=== PATIENT | male | born 1965 | race African-American/Black ===

== ENCOUNTER 2021-12-28 22:00 | Inpatient (IN) | payer OTHER ==
[2021-12-28 23:58] VITALS: BMI 36.6
[2021-12-29] MEDS ORDERED: Loperamide HCl 2 MG CAP PO PRN (05:02)
[2021-12-29] MEDS ORDERED: Acetaminophen 325 MG TAB PO PRN (05:02)
[2021-12-29] MEDS ORDERED: Zolpidem Tartrate 5 MG TAB PO PRN (05:02)
[2021-12-29] MEDS ORDERED: Ondansetron PF 4 MG/2 ML Vial IVP PRN (05:02)
[2021-12-29] MEDS ORDERED: HYDROcodone/Acetaminophen 5/325 mg Tablet PO PRN (05:02)
[2021-12-29] MEDS ORDERED: Bisacodyl 10 MG SUPP PR PRN (05:02)
[2021-12-29] MEDS ORDERED: Senokot S 8.6-50 MG TAB PO PRN (05:02)
[2021-12-29] MEDS ORDERED: Calcium Carbonate 500 MG ChewTAB PO PRN (05:02)
[2021-12-29] MEDS: Furosemide 40 MG/4 ML VIAL SLOW IVP SCH ×2 (05:29→13:29)
[2021-12-29] MEDS: Heparin 5,000 UNITS/ML VIAL SC SCH ×3 (08:28→20:06)
[2021-12-29] MEDS: Carvedilol 6.25 MG TAB PO SCH ×2 (08:29→17:59)
[2021-12-29] MEDS: hydrALAZINE 25 MG TAB PO SCH ×4 (08:29→20:06)
[2021-12-29 08:57] LABS: Anion Gap 14 mmol/L (10-20); BUN (Urea Nitrogen) 21 mg/dL (8.4-25.7); Calc. Creatinine Clearance 53 mL/min (70-130); Calcium 9.4 mg/dL (7.8-10.44); Carbon Dioxide 27 mmol/L (22-29); Chloride 106 mmol/L (98-107); Estimated GFR 34; Glucose 99 mg/dL (70-105); Potassium 3.4 mmol/L (3.5-5.1); Sodium 144 mmol/L (136-145)
[2021-12-29] MEDS ORDERED: Lisinopril 20 MG TAB PO SCH (09:00)
[2021-12-30 04:20] LABS: #Eosinphils 0.3 thou/uL (0.0-0.7); #Lymphocytes 1.9 thou/uL (1.20-3.40); #Monocytes 0.4 thou/uL (0.11-0.59); #Neutrophils 2.1 thou/uL (1.40-6.50); %Basophils 0.1 % (0.0-1.0); %Eosinophils 7.1 % (0.0-10.0); %Lymphocytes 39.3 % (21.0-51.0); %Neutrophils 44.5 % (42.0-75.0); Hemoglobin 14.7 g/dL (14.0-18.0); Mean Corpuscular HGB CONC 33.4 g/dL (32.0-36.0); Mean Corpuscular Hemoglobin 29.9 pg (27.0-31.0); Mean Corpuscular Volume 89.6 fL (78.0-98.0); Mean Platelet Volume 7.6 fL (7.4-10.4); Platelet Count 224 thou/uL (130-400); RBC Distribution Width 12.4 % (11.5-14.5); White Blood Cell (WBC) Count 4.7 thou/uL (4.8-10.8)
[2021-12-30 04:43] LABS: Anion Gap 14 mmol/L (10-20); BUN (Urea Nitrogen) 29 mg/dL (8.4-25.7); Calc. Creatinine Clearance 54 mL/min (70-130); Calcium 8.9 mg/dL (7.8-10.44); Carbon Dioxide 23 mmol/L (22-29); Chloride 105 mmol/L (98-107); Estimated GFR 36; Glucose 102 mg/dL (70-105); Potassium 3.3 mmol/L (3.5-5.1); Sodium 139 mmol/L (136-145)
[2021-12-30] MEDS: Furosemide 40 MG/4 ML VIAL SLOW IVP SCH (05:07)
[2021-12-30] MEDS ORDERED: Potassium Chloride 20 MEQ TAB PO SCH (08:30)
[2021-12-30] MEDS: Heparin 5,000 UNITS/ML VIAL SC SCH (09:40)
[2021-12-30] MEDS: hydrALAZINE 25 MG TAB PO SCH (09:41)
[2021-12-30] MEDS: Carvedilol 6.25 MG TAB PO SCH (09:41)
[2021-12-30 13:05] VITALS: TEMP 97.8
[2021-12-30 17:03] VITALS: BP 152/102
== END 2021-12-30 14:20 | disposition home or self-care (01) | DRG 291 ==
LOC: 2NO 23:44
PROVIDERS: ADMIT Internal Medicine; ATTEND Internal Medicine
DX: I13.0 Hypertensive heart and chronic kidney disease with heart failure and stage 1 through stage 4 chronic kidney disease, or unspecified chronic kidney disease (principal); I50.43 Acute on chronic combined systolic (congestive) and diastolic (congestive) heart failure; I16.1 Hypertensive emergency; Z20.822 Contact with and (suspected) exposure to COVID-19; N18.30 Chronic kidney disease, stage 3 unspecified; E66.9 Obesity, unspecified; I42.0 Dilated cardiomyopathy; E87.6 Hypokalemia; Z53.29 Procedure and treatment not carried out because of patient's decision for other reasons; Z79.899 Other long term (current) drug therapy; Z91.14 Patient's other noncompliance with medication regimen; I69.920 Aphasia following unspecified cerebrovascular disease; Z68.35 Body mass index [BMI] 35.0-35.9, adult
CPT/HCPCS: 36415; 80048; 85025; 93306; 93798; J1644; J1940

== ENCOUNTER 2025-02-01 19:40 | Inpatient (IN) | payer MEDICARE, OTHER ==
[2025-02-01] MEDS ORDERED: Calcium Carbonate 500 MG ChewTAB PO PRN (22:17)
[2025-02-01] MEDS ORDERED: Ondansetron PF 4 MG/2 ML Vial IVP PRN (22:17)
[2025-02-01] MEDS ORDERED: Acetaminophen 325 MG TAB PO PRN (22:17)
[2025-02-01 23:46] VITALS: BMI 38.7
[2025-02-02 04:05] LABS: #Basophils 0.05 10x3/uL (0.0-0.2); #Eosinophils 0.22 10x3/uL (0.0-0.7); #Monocytes 0.63 10x3/uL (0.11-0.59); #Neutrophils 3.47 10x3/uL (1.40-6.50); %Basophils 0.9 % (0.0-1.0); %Eosinophils 3.8 % (0.0-10.0); %Lymphocytes 24.7 % (21.0-51.0); %Monocytes 10.8 % (0.0-10.0); %Neutrophils 59.3 % (42.0-75.0); Hematocrit 38.2 % (42.0-52.0); Hemoglobin 12.5 g/dL (14.0-18.0); Mean Corpuscular Hemoglobin 28.6 pg (27.0-31.0); Mean Corpuscular Volume 87.4 fL (78.0-98.0); Platelet Count 230 10x3/uL (130-400); Red Blood Cell (RBC) Count 4.37 mill/uL (4.70-6.10); White Blood Cell (WBC) Count 5.84 10x3/uL (4.8-10.8)
[2025-02-02 04:39] LABS: ALT (SGPT) 25 U/L (Less than 45); AST (SGOT) 24 U/L (11-34); Albumin 3.4 g/dL (3.1-4.5); Alkaline Phosphatase 77 U/L (40-110); Anion Gap 16 mmol/L (10-20); BUN (Urea Nitrogen) 25 mg/dL (8.4-25.7); Bilirubin, Total 1.1 mg/dL (0.3-1.2); Calc. Creatinine Clearance 50 mL/min (70-130); Calcium 9.0 mg/dL (7.8-10.44); Carbon Dioxide 21 mmol/L (22-29); Chloride 109 mmol/L (98-107); Globulin 3.8 g/dL (2.4-3.5); Glucose 117 mg/dL (70-105); Magnesium 1.9 mg/dL (1.6-2.6); Potassium 3.6 mmol/L (3.5-5.1); Sodium 142 mmol/L (136-145)
[2025-02-02 04:56] LABS: Troponin I 0.190 ng/mL (< 0.028)
[2025-02-02] MEDS: Furosemide 40 MG (4 mL) VIAL SLOW IVP SCH (06:09)
[2025-02-02 09:00] LABS: Troponin I 0.148 ng/mL (< 0.028)
[2025-02-02] MEDS ORDERED: Heparin 5,000 UNITS/ML VIAL SC SCH (09:00)
[2025-02-02] MEDS: Aspirin 81 mg Enteric Coated Tablet PO SCH (09:25)
[2025-02-02] MEDS: Carvedilol 6.25 MG TAB PO SCH (09:27)
[2025-02-02] MEDS: Isosorbide Mononitrate 30 MG ER.TAB.S PO SCH (09:27)
[2025-02-02] MEDS: Heparin 5,000 UNITS/ML VIAL SC SCH (09:28)
[2025-02-03 03:59] LABS: #Basophils 0.04 10x3/uL (0.0-0.2); #Eosinophils 0.51 10x3/uL (0.0-0.7); #Monocytes 0.58 10x3/uL (0.11-0.59); #Neutrophils 2.93 10x3/uL (1.40-6.50); %Basophils 0.7 % (0.0-1.0); %Eosinophils 9.3 % (0.0-10.0); %Lymphocytes 25.5 % (21.0-51.0); %Monocytes 10.6 % (0.0-10.0); %Neutrophils 53.5 % (42.0-75.0); Hematocrit 35.0 % (42.0-52.0); Hemoglobin 11.3 g/dL (14.0-18.0); Mean Corpuscular Hemoglobin 29.0 pg (27.0-31.0); Mean Corpuscular Volume 90.0 fL (78.0-98.0); Platelet Count 239 10x3/uL (130-400); Red Blood Cell (RBC) Count 3.89 mill/uL (4.70-6.10); White Blood Cell (WBC) Count 5.48 10x3/uL (4.8-10.8)
[2025-02-03 04:11] LABS: Anion Gap 15 mmol/L (10-20); BUN (Urea Nitrogen) 32 mg/dL (8.4-25.7); Calc. Creatinine Clearance 48 mL/min (70-130); Calcium 8.9 mg/dL (7.8-10.44); Carbon Dioxide 21 mmol/L (22-29); Chloride 108 mmol/L (98-107); Glucose 106 mg/dL (70-105); Potassium 3.5 mmol/L (3.5-5.1); Sodium 140 mmol/L (136-145)
[2025-02-03] MEDS ORDERED: Isosorbide Mononitrate 30 MG ER.TAB.S PO SCH (09:00)
[2025-02-04 07:49] LABS: Anion Gap 15 mmol/L (10-20); BUN (Urea Nitrogen) 37 mg/dL (8.4-25.7); Calc. Creatinine Clearance 43 mL/min (70-130); Calcium 8.6 mg/dL (7.8-10.44); Carbon Dioxide 26 mmol/L (22-29); Chloride 101 mmol/L (98-107); Glucose 86 mg/dL (70-105); Potassium 3.2 mmol/L (3.5-5.1); Sodium 139 mmol/L (136-145)
[2025-02-04 13:55] LABS: Potassium 4.2 mmol/L (3.5-5.1)
[2025-02-05 03:50] LABS: #Basophils 0.03 10x3/uL (0.0-0.2); #Eosinophils 0.50 10x3/uL (0.0-0.7); #Monocytes 0.52 10x3/uL (0.11-0.59); #Neutrophils 2.39 10x3/uL (1.40-6.50); %Basophils 0.6 % (0.0-1.0); %Eosinophils 10.6 % (0.0-10.0); %Lymphocytes 26.5 % (21.0-51.0); %Monocytes 11.0 % (0.0-10.0); %Neutrophils 50.9 % (42.0-75.0); Hematocrit 36.9 % (42.0-52.0); Hemoglobin 11.6 g/dL (14.0-18.0); Mean Corpuscular Hemoglobin 28.2 pg (27.0-31.0); Mean Corpuscular Volume 89.6 fL (78.0-98.0); Platelet Count 242 10x3/uL (130-400); Red Blood Cell (RBC) Count 4.12 mill/uL (4.70-6.10); White Blood Cell (WBC) Count 4.71 10x3/uL (4.8-10.8)
[2025-02-05 04:29] LABS: Anion Gap 14 mmol/L (10-20); BUN (Urea Nitrogen) 38 mg/dL (8.4-25.7); Calc. Creatinine Clearance 53 mL/min (70-130); Calcium 8.6 mg/dL (7.8-10.44); Carbon Dioxide 20 mmol/L (22-29); Chloride 105 mmol/L (98-107); Glucose 98 mg/dL (70-105); Potassium 3.3 mmol/L (3.5-5.1); Sodium 136 mmol/L (136-145)
[2025-02-05 14:39] LABS: Potassium 3.9 mmol/L (3.5-5.1)
[2025-02-05 15:23] VITALS: BP 146/98; TEMP 97.9
== END 2025-02-05 15:42 | disposition home or self-care (01) | DRG 280 ==
LOC: INTOOBSV 22:09 → PCU 22:09 → OBSVTOIN 02-02 08:17
PROVIDERS: ADMIT Hospitalist; ATTEND Hospitalist
DX: I13.0 Hypertensive heart and chronic kidney disease with heart failure and stage 1 through stage 4 chronic kidney disease, or unspecified chronic kidney disease (principal); I50.23 Acute on chronic systolic (congestive) heart failure; I21.A1 Myocardial infarction type 2; J96.01 Acute respiratory failure with hypoxia; N18.4 Chronic kidney disease, stage 4 (severe); E11.22 Type 2 diabetes mellitus with diabetic chronic kidney disease; Z86.73 Personal history of transient ischemic attack (TIA), and cerebral infarction without residual deficits; I42.0 Dilated cardiomyopathy; Z79.899 Other long term (current) drug therapy; Z79.82 Long term (current) use of aspirin
CPT/HCPCS: 36415; 80048; 80053; 83735; 83880; 84443; 84484; 85025; 93005; 93010; 93306; 93798; 96374; G0378; J1250; J1644; J1940